=== PATIENT | female | born 2000 | race African-American/Black ===

== ENCOUNTER 2023-11-29 13:57 | Outpatient (CLI) | payer OTHER, SELFPAY | END 2023-11-29 13:58 | disposition home or self-care (01) | PROVIDERS: Visit Provider Obstetrics & Gynecology | DX: E28.2 Polycystic ovarian syndrome (principal); R79.89 Other specified abnormal findings of blood chemistry | CPT/HCPCS: 80061; 82627; 83001; 83002; 83498; 84146; 84270; 84402; 84403; 84443 ==